=== PATIENT | female | born 1990 | race Caucasian/White ===

== ENCOUNTER 2019-05-13 20:33 | Emergency (ER) | payer MEDICAID ==
[~2019-05-13] VITALS: Ht 167.6 cm; Wt 68.2 kg
[~2019-05-13 20:33] MED LIST: AMOX-422 PO; PREN-118 PO
[2019-05-13 20:47] VITALS: BP 133/82
[2019-05-13] MEDS ORDERED: CIPR10DR LEFT EAR (22:04)
== END 2019-05-13 22:29 | disposition home or self-care (01) ==
LOC: ER 20:39
DX: H60.92 Unspecified otitis externa, left ear (principal); Z98.51 Tubal ligation status; Z79.2 Long term (current) use of antibiotics; Z79.899 Other long term (current) drug therapy
CPT/HCPCS: 99283

== ENCOUNTER → 2020-04-23 | Day surgery (SDC) | payer MEDICAID ==
[2020-04-16 11:18] LABS: CLARITY,URINE SLIGHTLY CLOUDY (Clear); COLOR,URINE YELLOW (Yellow); GLUCOSE, URINE NEGATIVE (Neg); KETONES,URINE NEGATIVE (Neg); LEUKOCYTE ESTERASE ,URINE NEGATIVE (Neg); NITRITES, URINE NEGATIVE (Neg); OCCULT BLOOD,URINE NEGATIVE (Neg); PH,URINE 6.5 (4.8-8.0); PROTEIN,URINE NEGATIVE (Neg); UROBILINOGEN,URINE 0.2 E.U/dL (0.2-1.0)
[2020-04-16 11:22] LABS: BASOPHILS % (AUTO) 0.3 % (0-1); EOSINOPHILS # (AUTO) 0.4 X10'3 (0-0.9); EOSINOPHILS % (AUTO) 5.3 % (0-6); LYMPHOCYTES # (AUTO) 1.9 X10'3 (1.1-4.8); LYMPHOCYTES % (AUTO) 23.7 % (21-51); MEAN CORPUSCULAR HEMOGLOBIN 29.2 PG (27.0-31.0); MEAN CORPUSCULAR HGB CONC 33.7 g/dL (33.0-36.5); MEAN CORPUSCULAR VOLUME 86.7 FL (78-98); MEAN PLATELET VOLUME 8.5 FL (7.4-10.4); MONOCYTES # (AUTO) 0.6 X10'3 (0-0.9); MONOCYTES % (AUTO) 7.5 % (2-12); NEUTROPHILS # (AUTO) 5.1 X10'3 (1.8-7.7); NEUTROPHILS % (AUTO) 63.2 % (42-75); PRE OP HEMATOCRIT 40.7 % (35.0-45.0); PRE OP HEMOGLOBIN 13.7 g/dL (12.0-16.0); PRE OP PLATELET COUNT 285 X10'3 (140-440); RED CELL DISTRIBUTION WIDTH 12.9 % (11.5-14.5)
[2020-04-16 11:26] LABS: MUCUS STRANDS MANY /LPF (Neg); SQUAMOUS EPITHELIAL CELL,UR MANY /LPF (FEW); UA COLLECTION TYPE CLN CATCH MIDSTREAM
[2020-04-16 11:29] LABS: PRE OP PROTIME 10.3 SECONDS (9.0-12.0)
[2020-04-16 11:30] LABS: BACTERIA,URINE 1+ /HPF (Neg); RBC,URINE 0-2 /HPF (0-2); WBC,URINE 0-4 /HPF (0-4)
[2020-04-16 11:31] LABS: ALBUMIN 3.4 G/DL (3.4-5.0); ALBUMIN/GLOBULIN RATIO 0.8 (1.1-1.5); ALKALINE PHOSPHATASE 81 IU/L (46-116); BLOOD UREA NITROGEN 15 MG/DL (7-18); BUN/CREATININE RATIO 16.3 (6.6-38.0); CALCIUM 8.7 MG/DL (8.5-10.1); CHLORIDE 103 MMOL/L (99-107); CREATININE 0.92 MG/DL (0.40-0.90); PRE OP ALT 25 U/L (30-65); PRE OP ANION GAP 9 (8-16); PRE OP AST 18 U/L (10-37); PRE OP BILIRUB, TOTAL 0.3 MG/DL (0.0-1.0); PRE OP GLUCOSE 103 MG/DL (70-104); PRE OP POTASSIUM 3.9 MMOL/L (3.4-5.1); PRE OP SODIUM 136 MMOL/L (135-145); TOTAL CARBON DIOXIDE 24.2 MMOL/L (24-32); TOTAL PROTEIN 7.7 G/DL (6.4-8.2); eGFR 71 ML/MIN
[2020-04-16 11:34] LABS: HCG SERUM QL NEGATIVE
[~2020-04-23] VITALS: Ht 167.6 cm; Wt 70.3 kg
[2020-04-23] VITALS (13 sets, daily range): BP systolic 115–133; BP diastolic 59–86
[~2020-04-23] MED LIST changes: -AMOX-422 PO; +BUPIVAcaine/PF 2.5 mg/ml (0.25%) 30ml vial ONE; +CHOL400T57 PO; +KRATOM PO; +LIDOcaine 1% (10mg/ml) 2ml vial ONE; +LIDOcaine 2% (20mg/ml) 5ml vial ONE; -PREN-118 PO; +ceFOXitin 2GM-NS 100mL ADDvant 100 ML IV ONE; +dexamethasone sod phosphate 4mg/ml inj. ONE; +famotidine 20mg tablet PO ONE; +fentaNYL /PF 50mcg/ml 5ml ampule ONE; +glycopyrrolate 0.2mg/ml inj ONE; +meperidine/PF 25mg/ml syringe IV PRN; +midazolam 2 mg/2 ml injection ONE; +morphine 2 MG/ML inj. syringe IV PRN; +neostigmine methylsulfate 1 MG/ML 10ml vial ONE; +ondansetron/PF 4mg/2ml inj IV PRN; +ondansetron/PF 4mg/2ml inj ONE; +oxyCODONE/APAP 10/325mg tablet PO ONE; +proCHLORperazine 10 MG/2 ml inj IV PRN; +propofol inj 20 ML IV ONE; +ringers solution, lacted 1,000 ML IV SCH; +rocuronium 10mg/ml inj IV ONE; +sevoflurane 250ml liquid IH ONE
--- NOTE | 2020-04-23 09:00 | NUR ---
Received from OR via BED , accompanied by Anesthesiologist DR ALMONTE and report given by Anesthesiolgist. PATIENT WAKING UP, C/O PAIN SEE EMAR, V/S WNL, NEUROVASCULAR CHECKS INTACT, 20G PIV RUE, SCD ON, BANDAIDS TO LAP SIGHTS OF ABDOMEN CDI
[2020-04-23] MEDS: meperidine/PF 25mg/ml syringe IV PRN ×2 (09:05→09:23)
[2020-04-23] MEDS: morphine 4 MG/ML inj SYRINge IV PRN ×3 (09:36→10:51)
--- NOTE | 2020-04-23 10:25 | NUR ---
PATIENT UNABLE TO PEE, BLADDER SCAN SHOWED ZERO URINE. PO FLUID AND IVF ENC
--- NOTE | 2020-04-23 11:40 | NUR ---
PATIENT A&OX4, STATES PAIN UNDER CONTROL 3-12/22, V/S WNL, NEUROVASCULAR CHECKS INTACT, 20G PIV RUE D/C, SCD OFF, BANDAIDS TO LAP SIGHTS OF ABDOMEN CDI. PATIENT BLADDER SCAN WAS ZERO AFTER VOIDING 50CC. I SPOKE WITH DR BRADLEY ABOUT HER I&O RESULTS AND SHE STATED HER PATIENT COULD BE D/C HOME AFTER HER LAST VOID OF 50CC. I HAVE REVIEWED D/C INSTRUCTIONS WITH PATIENT AND FAMILY AND THEY HAVE VERBALIZED UNDERSTANDING. PATIENT GIVEN SCRIPT FOR PAIN AND D/C HOME WITH ALL BELONGINGS AND FAMILY GAVE TRANSPORT HOME.
== END | disposition home or self-care (01) ==
LOC: PAS 05:40
PROVIDERS: ATTEND Obstetrics & Gynecology
DX: R10.2 Pelvic and perineal pain (principal); N80.9 Endometriosis, unspecified; E28.2 Polycystic ovarian syndrome; N72 Inflammatory disease of cervix uteri; K66.8 Other specified disorders of peritoneum; G89.29 Other chronic pain; F17.210 Nicotine dependence, cigarettes, uncomplicated; Z98.51 Tubal ligation status; Z98.890 Other specified postprocedural states; Z11.59 Encounter for screening for other viral diseases; Z79.899 Other long term (current) drug therapy
CPT/HCPCS: 36415; 58571; 80053; 81001; 82948; 84703; 85025; 85610; 85730; 86885; 86900; 86901; C1758; J0694; J1100; J2001; J2175; J2250; J2270; J2405; J2704; J2710; J3010; J3490; J7120; S2900; U0003; A4618

== ENCOUNTER 2023-01-17 12:29 | Emergency (ER) | payer MEDICAID ==
[~2023-01-17] VITALS: Ht 167.6 cm; Wt 72.7 kg
[~2023-01-17 12:29] MED LIST changes: -BUPIVAcaine/PF 2.5 mg/ml (0.25%) 30ml vial ONE; -LIDOcaine 1% (10mg/ml) 2ml vial ONE; -LIDOcaine 2% (20mg/ml) 5ml vial ONE; -ceFOXitin 2GM-NS 100mL ADDvant 100 ML IV ONE; -dexamethasone sod phosphate 4mg/ml inj. ONE; -famotidine 20mg tablet PO ONE; -fentaNYL /PF 50mcg/ml 5ml ampule ONE; -glycopyrrolate 0.2mg/ml inj ONE; -meperidine/PF 25mg/ml syringe IV PRN; -midazolam 2 mg/2 ml injection ONE; -morphine 2 MG/ML inj. syringe IV PRN; -neostigmine methylsulfate 1 MG/ML 10ml vial ONE; -ondansetron/PF 4mg/2ml inj IV PRN; -ondansetron/PF 4mg/2ml inj ONE; -oxyCODONE/APAP 10/325mg tablet PO ONE; -proCHLORperazine 10 MG/2 ml inj IV PRN; -propofol inj 20 ML IV ONE; -ringers solution, lacted 1,000 ML IV SCH; -rocuronium 10mg/ml inj IV ONE; -sevoflurane 250ml liquid IH ONE
[2023-01-17 12:39] VITALS: BP 127/83
[2023-01-17 13:05] LABS: EOSINOPHILS # (AUTO) 0.2 X10'3 (0-0.9); HEMOGLOBIN 14.1 g/dl (12.0-16.0)
[2023-01-17 13:07] LABS: BASOPHILS % (AUTO) 0.3 % (0-1); EOSINOPHILS % (AUTO) 2.1 % (0-6); HEMATOCRIT 40.7 % (35.0-45.0); LYMPHOCYTES # (AUTO) 1.3 X10'3 (1.1-4.8); LYMPHOCYTES % (AUTO) 13.3 % (21-51); MEAN CORPUSCULAR HEMOGLOBIN 30.5 PG (27.0-31.0); MEAN CORPUSCULAR HGB CONC 34.7 g/dL (33.0-36.5); MONOCYTES # (AUTO) 1.3 X10'3 (0-0.9); MONOCYTES % (AUTO) 13.5 % (2-12); NEUTROPHILS # (AUTO) 6.8 X10'3 (1.8-7.7); NEUTROPHILS % (AUTO) 70.8 % (42-75); PLATELET COUNT 449 X10'3 (140-440); RED BLOOD COUNT 4.63 X10'6 (4.20-5.60); RED CELL DISTRIBUTION WIDTH 12.5 % (11.5-14.5); WHITE BLOOD COUNT 9.6 X10'3 (4.5-11.0)
[2023-01-17 13:30] LABS: ALANINE AMINOTRANSFERASE 17 U/L (12-78); ALBUMIN 3.2 G/DL (3.4-5.0); ALBUMIN/GLOBULIN RATIO 0.6 (1.1-1.5); ALKALINE PHOSPHATASE 139 IU/L (46-116); ANION GAP 12 (8-16); ASPARTATE AMINO TRANSFERASE 16 U/L (10-37); BILIRUBIN,TOTAL 0.3 MG/DL (0.1-1.0); BLOOD UREA NITROGEN 6 MG/DL (7-18); BUN/CREATININE RATIO 6.2 (10.0-20.0); CALCIUM 9.6 MG/DL (8.5-10.1); CHLORIDE 101 MMOL/L (99-107); CREATININE 0.97 MG/DL (0.40-0.90); GLUCOSE 124 MG/DL (70-104); LIPASE 52 U/L (73-393); POTASSIUM 3.1 MMOL/L (3.5-5.1); SODIUM 137 MMOL/L (135-145); TOTAL CARBON DIOXIDE 24.1 MMOL/L (24-32); TOTAL PROTEIN 8.3 G/DL (6.4-8.2); eGFR 66 ML/MIN
[2023-01-17 13:41] LABS: CLARITY,URINE CLOUDY (Clear); COLOR,URINE YELLOW (Yellow); GLUCOSE, URINE NEGATIVE (Neg); KETONES,URINE TRACE mg/dl (Neg); LEUKOCYTE ESTERASE ,URINE NEGATIVE (Neg); NITRITES, URINE NEGATIVE (Neg); OCCULT BLOOD,URINE TRACE-INTACT (Neg); PROTEIN,URINE NEGATIVE (Neg); UROBILINOGEN,URINE 0.2 E.U/dL (0.2-1.0)
[2023-01-17] MEDS ORDERED: normal saline 1000ml 1,000 ML IV ONE (13:45)
[2023-01-17 13:54] LABS: UA COLLECTION TYPE CLN CATCH MIDSTREAM
[2023-01-17 13:56] LABS: MUCUS STRANDS MODERATE /LPF (Neg); SQUAMOUS EPITHELIAL CELL,UR MODERATE /LPF (FEW)
[2023-01-17 13:57] LABS: BACTERIA,URINE 1+ /HPF (Neg); RBC,URINE 0-2 /HPF (0-2); WBC,URINE 0-4 /HPF (0-4)
[2023-01-17] MEDS ORDERED: magnesium 2GM in 50ml NS 50 ML IV ONE (14:30)
[2023-01-17] MEDS ORDERED: POTASSIUM BICARB 20meq eff tab 20 MEQ TABLET.EFF PO ONE (14:30)
[2023-01-17 14:58] LABS: TOTAL CELLS COUNTED 100
[2023-01-17 14:59] LABS: PLATELET ESTIMATE INCREASED
[2023-01-17] MEDS ORDERED: ondansetron/PF 4mg/2ml inj IV ONE (15:50)
[2023-01-17] MEDS ORDERED: CefTRIAXone 2gm/D5W 50ml BAG 50 ML IV ONE (15:50)
[2023-01-17] MEDS ORDERED: ketorolac trometh. 30mg/ml inj. IV ONE (16:10)
[2023-01-17] MEDS ORDERED: glycopyrrolate 0.2mg/ml inj IV ONE (16:10)
[2023-01-17] MEDS ORDERED: azithromycin 250mg tablet PO ONE (17:00)
[2023-01-17] MEDS ORDERED: DICY10CA88 PO (17:01)
[2023-01-17] MEDS ORDERED: ONDA4TAB12 PO (17:01)
== END 2023-01-17 17:23 | disposition home or self-care (01) ==
LOC: ER 12:30
DX: R11.2 Nausea with vomiting, unspecified (principal); R19.7 Diarrhea, unspecified; Z98.51 Tubal ligation status
CPT/HCPCS: 36415; 80053; 81001; 83690; 85007; 85025; 96361; 96365; 96366; 96368; 96375; 99284; J0696; J1885; J2405; J3475; J3490; J7030

== ENCOUNTER 2023-01-20 11:31 | Emergency (ER) | payer MEDICAID ==
[~2023-01-20] VITALS: Ht 167.6 cm; Wt 72.7 kg
[~2023-01-20 11:31] MED LIST changes: +DICY10CA88 PO; +ONDA4TAB12 PO
[2023-01-20 12:12] LABS: BASOPHILS % (AUTO) 0.2 % (0-1); EOSINOPHILS # (AUTO) 0.3 X10'3 (0-0.9); EOSINOPHILS % (AUTO) 2.3 % (0-6); HEMATOCRIT 40.8 % (35.0-45.0); HEMOGLOBIN 13.8 g/dl (12.0-16.0); LYMPHOCYTES # (AUTO) 0.9 X10'3 (1.1-4.8); LYMPHOCYTES % (AUTO) 6.6 % (21-51); MEAN CORPUSCULAR HEMOGLOBIN 29.7 PG (27.0-31.0); MEAN CORPUSCULAR HGB CONC 33.9 g/dL (33.0-36.5); MEAN CORPUSCULAR VOLUME 87.7 FL (78-98); MEAN PLATELET VOLUME 7.5 FL (7.4-10.4); MONOCYTES % (AUTO) 7.2 % (2-12); NEUTROPHILS % (AUTO) 83.7 % (42-75); PLATELET COUNT 488 X10'3 (140-440); RED BLOOD COUNT 4.65 X10'6 (4.20-5.60); RED CELL DISTRIBUTION WIDTH 12.4 % (11.5-14.5); WHITE BLOOD COUNT 14.3 X10'3 (4.5-11.0)
[2023-01-20 12:25] LABS: ALANINE AMINOTRANSFERASE 15 U/L (12-78); ALBUMIN 2.6 G/DL (3.4-5.0); ALBUMIN/GLOBULIN RATIO 0.5 (1.1-1.5); ALKALINE PHOSPHATASE 128 IU/L (46-116); ANION GAP 12 (8-16); ASPARTATE AMINO TRANSFERASE 11 U/L (10-37); BILIRUBIN,TOTAL 0.4 MG/DL (0.1-1.0); BLOOD UREA NITROGEN 11 MG/DL (7-18); CALCIUM 8.6 MG/DL (8.5-10.1); CHLORIDE 97 MMOL/L (99-107); CREATININE 0.92 MG/DL (0.40-0.90); GLUCOSE 139 MG/DL (70-104); LIPASE < 50 U/L (73-393); POTASSIUM 3.3 MMOL/L (3.5-5.1); SODIUM 136 MMOL/L (135-145); TOTAL CARBON DIOXIDE 27.2 MMOL/L (24-32); TOTAL PROTEIN 7.5 G/DL (6.4-8.2); eGFR 70 ML/MIN
[2023-01-20 13:08] LABS: LARGE PLATELETS FEW; PLATELET ESTIMATE INCREASED
--- NOTE | 2023-01-20 13:13 | NUR ---
UA SENT TO LAB - FATHER AT BEDSIDE - PT UPDATED ON PLAN OF CARE
[2023-01-20] MEDS ORDERED: normal saline 1000ML IV soln IV ONE (13:30)
[2023-01-20 13:34] LABS: CLARITY,URINE CLEAR (Clear); COLOR,URINE DARK YELLOW (Yellow); GLUCOSE, URINE NEGATIVE (Neg); KETONES,URINE 15 mg/dl (Neg); LEUKOCYTE ESTERASE ,URINE NEGATIVE (Neg); NITRITES, URINE NEGATIVE (Neg); OCCULT BLOOD,URINE SMALL (Neg); PROTEIN,URINE 30 mg/dl (Neg); UA COLLECTION TYPE CLN CATCH MIDSTREAM; UROBILINOGEN,URINE 0.2 E.U/dL (0.2-1.0)
[2023-01-20 13:47] LABS: BACTERIA,URINE 2+ /HPF (Neg); MUCUS STRANDS MANY /LPF (Neg); SQUAMOUS EPITHELIAL CELL,UR MANY /LPF (FEW); WBC,URINE 0-4 /HPF (0-4)
[2023-01-20 13:50] LABS: URINE HCG POSITIVE (NEG)
[2023-01-20] MEDS ORDERED: ringers solution, lacted 1,000 ML IV ONE (14:40)
[2023-01-20] MEDS ORDERED: ondansetron/PF 4mg/2ml inj IV ONE (14:40)
[2023-01-20] MEDS ORDERED: potassium Cl 20 mEq SR tablet PO ONE (15:45)
[2023-01-20 15:54] LABS: C DIFF SPECIMEN=DIARRHEA? ACCEPTABLE; C DIFFICILE TOXINS A&B POSITIVE (Neg)
[2023-01-20] MEDS ORDERED: vancomycin 125mg/5ml ORAL solution 5ml UD oral syringe PO ONE (16:35)
[2023-01-20] MEDS ORDERED: VANC125C5 PO (16:52)
[2023-01-20 17:13] VITALS: BP 139/83
== END 2023-01-20 18:01 | disposition home or self-care (01) ==
LOC: ER 11:32
DX: A04.72 Enterocolitis due to Clostridium difficile, not specified as recurrent (principal); R91.8 Other nonspecific abnormal finding of lung field; F17.200 Nicotine dependence, unspecified, uncomplicated; Z98.51 Tubal ligation status
CPT/HCPCS: 36415; 70450; 71250; 74176; 80053; 81001; 81025; 83605; 83690; 84145; 84702; 85008; 85025; 87040; 87045; 87046; 87324; 87449; 96361; 96374; 99285; J2405; J7030; J7120

== ENCOUNTER 2023-02-02 11:26 | Inpatient (IN) | payer MEDICAID ==
[~2023-02-02] VITALS: Ht 167.6 cm; Wt 67.7 kg
[2023-02-02 12:05] LABS: BASOPHILS % (AUTO) 0.2 % (0-1); EOSINOPHILS # (AUTO) 0.3 X10'3 (0-0.9); EOSINOPHILS % (AUTO) 2.1 % (0-6); HEMATOCRIT 38.7 % (35.0-45.0); HEMOGLOBIN 12.6 g/dl (12.0-16.0); LYMPHOCYTES # (AUTO) 1.2 X10'3 (1.1-4.8); MEAN CORPUSCULAR HEMOGLOBIN 28.2 PG (27.0-31.0); MEAN CORPUSCULAR HGB CONC 32.5 g/dL (33.0-36.5); MEAN CORPUSCULAR VOLUME 86.7 FL (78-98); MEAN PLATELET VOLUME 7.1 FL (7.4-10.4); MONOCYTES # (AUTO) 0.1 X10'3 (0-0.9); MONOCYTES % (AUTO) 0.4 % (2-12); NEUTROPHILS # (AUTO) 11.8 X10'3 (1.8-7.7); NEUTROPHILS % (AUTO) 88.3 % (42-75); PLATELET COUNT 719 X10'3 (140-440); RED BLOOD COUNT 4.46 X10'6 (4.20-5.60); WHITE BLOOD COUNT 13.4 X10'3 (4.5-11.0)
[2023-02-02 12:16] LABS: ALANINE AMINOTRANSFERASE 38 U/L (12-78); ALBUMIN 1.4 G/DL (3.4-5.0); ALBUMIN/GLOBULIN RATIO 0.3 (1.1-1.5); ALKALINE PHOSPHATASE 119 IU/L (46-116); ANION GAP 4 (8-16); ASPARTATE AMINO TRANSFERASE 34 U/L (10-37); BILIRUBIN,TOTAL 0.2 MG/DL (0.1-1.0); BLOOD UREA NITROGEN 7 MG/DL (7-18); BUN/CREATININE RATIO 9.7 (10.0-20.0); CALCIUM 8.2 MG/DL (8.5-10.1); CHLORIDE 90 MMOL/L (99-107); CREATININE 0.72 MG/DL (0.40-0.90); GLUCOSE 135 MG/DL (70-104); LIPASE < 50 U/L (73-393); POTASSIUM 3.1 MMOL/L (3.5-5.1); SODIUM 129 MMOL/L (135-145); TOTAL CARBON DIOXIDE 34.8 MMOL/L (24-32); TOTAL PROTEIN 6.1 G/DL (6.4-8.2); eGFR > 90 ML/MIN
[2023-02-02 13:07] LABS: LARGE PLATELETS FEW; PLATELET ESTIMATE INCREASED; TOTAL CELLS COUNTED 100
[2023-02-02] MEDS ORDERED: ondansetron/PF 4mg/2ml inj IV ONE (13:40)
[2023-02-02] MEDS ORDERED: normal saline 1000ml 1,000 ML IV ONE ×2 (13:40→14:20)
[2023-02-02] MEDS ORDERED: metroNIDAZOLE-Flagyl 500mg/NS 100 ML IV STA (14:22)
[2023-02-02] MEDS ORDERED: POTASSIUM BICARB 20meq eff tab 20 MEQ TABLET.EFF PO STA (14:22)
[2023-02-02 14:31] LABS: MAGNESIUM 2.2 MG/DL (1.5-2.4)
[2023-02-02] MEDS ORDERED: vancomycin 125mg/5ml ORAL solution 5ml UD oral syringe PO STA (14:41)
[2023-02-02] MEDS ORDERED: ondansetron/PF 4mg/2ml inj IV PRN (14:45)
[2023-02-02] MEDS ORDERED: magnesium 4gm in 100ml NS 100 ML IV PRN (14:45)
[2023-02-02] MEDS ORDERED: potassium Cl 40MEQ/1/2NS 520ml 520 ML IV PRN (14:45)
[2023-02-02] MEDS ORDERED: mag hydrox/Alum hydrox/simeth 30ml oral suspension PO PRN (14:45)
[2023-02-02] MEDS ORDERED: acetaminophen 325mg tablet PO PRN (14:45)
[2023-02-02] MEDS ORDERED: morphine 2 MG/ML inj. syringe IV PRN ×2 (14:45)
[2023-02-02] MEDS ORDERED: potassium Cl 20 mEq SR tablet PO PRN (14:45)
[2023-02-02] MEDS ORDERED: ONDA4TAB12 PO (15:17)
[2023-02-02] MEDS ORDERED: DICY10CA14 PO (15:17)
[2023-02-02] MEDS ORDERED: CHOL20004 PO (15:17)
[2023-02-02] MEDS ORDERED: LACT1CAP65 PO (15:19)
[2023-02-02] MEDS ORDERED: ASCO-134 PO (15:20)
[2023-02-02] MEDS: normal saline 1000ml 1,000 ML IV SCH (17:03)
[2023-02-02 17:33] LABS: C DIFF SPECIMEN=DIARRHEA? ACCEPTABLE; C DIFFICILE TOXINS A&B NEGATIVE (Neg)
--- NOTE | 2023-02-02 18:43 | NUR ---
Received report from automatic blockerTERA Francis. Patient to follow shortly.
--- NOTE | 2023-02-02 19:00 | NUR ---
Patient arrived to floor via gurney. Patient A&O in no apparent distress at this time. Family are at bedside.
[2023-02-02 19:15] VITALS: BP 116/65
[2023-02-02] MEDS: potassium Cl 20 mEq SR tablet PO PRN (20:01)
[2023-02-02] MEDS: K and/or MAG REPLACEMENT MC SCH (20:14)
[2023-02-02] MEDS: vancomycin 125mg/5ml ORAL solution 5ml UD oral syringe PO SCH (20:14)
[2023-02-02 22:00] VITALS: BP 138/68
--- NOTE | 2023-02-02 23:20 | NUR ---
Dr Hogue called back in response to voicemail left earlier, and for now patient is to remain on contact/enteric isolation.
[2023-02-03] VITALS (9 sets, daily range): BP systolic 99–128; BP diastolic 46–70
[2023-02-03] MEDS: normal saline 1000ml 1,000 ML IV SCH ×3 (00:45→20:34)
[2023-02-03] MEDS: vancomycin 125mg/5ml ORAL solution 5ml UD oral syringe PO SCH ×4 (01:43→20:00)
[2023-02-03 06:10] LABS: BASOPHILS % (AUTO) 0.3 % (0-1); EOSINOPHILS # (AUTO) 0.4 X10'3 (0-0.9); EOSINOPHILS % (AUTO) 4.2 % (0-6); HEMATOCRIT 27.4 % (35.0-45.0); HEMOGLOBIN 9.6 g/dl (12.0-16.0); LYMPHOCYTES # (AUTO) 1.2 X10'3 (1.1-4.8); LYMPHOCYTES % (AUTO) 11.3 % (21-51); MEAN CORPUSCULAR HEMOGLOBIN 30.4 PG (27.0-31.0); MEAN CORPUSCULAR VOLUME 86.9 FL (78-98); MEAN PLATELET VOLUME 7.1 FL (7.4-10.4); MONOCYTES # (AUTO) 0.7 X10'3 (0-0.9); MONOCYTES % (AUTO) 7.1 % (2-12); NEUTROPHILS # (AUTO) 8.1 X10'3 (1.8-7.7); NEUTROPHILS % (AUTO) 77.1 % (42-75); PLATELET COUNT 470 X10'3 (140-440); RED BLOOD COUNT 3.16 X10'6 (4.20-5.60); RED CELL DISTRIBUTION WIDTH 12.9 % (11.5-14.5); WHITE BLOOD COUNT 10.5 X10'3 (4.5-11.0)
[2023-02-03 06:16] LABS: ALANINE AMINOTRANSFERASE 25 U/L (12-78); ALBUMIN/GLOBULIN RATIO 0.3 (1.1-1.5); ALKALINE PHOSPHATASE 85 IU/L (46-116); ANION GAP 1 (8-16); ASPARTATE AMINO TRANSFERASE 20 U/L (10-37); BILIRUBIN,TOTAL 0.2 MG/DL (0.1-1.0); BLOOD UREA NITROGEN 5 MG/DL (7-18); BUN/CREATININE RATIO 8.9 (10.0-20.0); CALCIUM 7.2 MG/DL (8.5-10.1); CHLORIDE 100 MMOL/L (99-107); CREATININE 0.56 MG/DL (0.40-0.90); GLUCOSE 102 MG/DL (70-104); MAGNESIUM 1.8 MG/DL (1.5-2.4); POTASSIUM 3.1 MMOL/L (3.5-5.1); SODIUM 131 MMOL/L (135-145); TOTAL CARBON DIOXIDE 29.9 MMOL/L (24-32); TOTAL PROTEIN 4.3 G/DL (6.4-8.2); eGFR > 90 ML/MIN
--- NOTE | 2023-02-03 06:50 | NUR ---
Problems reprioritized. Patient report given, questions answered & plan of care reviewed with Yin HALEY.
--- NOTE | 2023-02-03 06:55 | NUR ---
Patient in room ORTHO 4007. I have received report from RAYMOND HALEY and had the opportunity to ask questions and assume patient care.
[2023-02-03] MEDS: K and/or MAG REPLACEMENT MC SCH ×2 (08:00→20:34)
[2023-02-03] MEDS: potassium Cl 20 mEq SR tablet PO PRN ×2 (09:47→20:10)
--- NOTE | 2023-02-03 09:48 | NUR ---
PT REFUSED THE ORAL VANCO, STATED SHE WAS TAKING THIS A FEW WEEKS BACK DOESN'T USUALLY TAKE ABX, I EDUCATED HER ON WHY AND WHAT ITS FOR. STATED THAT IF SHE DOESN'T WANT TO TAKE IT SHE NEEDS TO TALK TO THE INFECTION CONTROL DR. CHARGE NURSE WAS NOTIFIED.
--- NOTE | 2023-02-03 11:04 | NUR ---
dr murrieta notified of pt refusal of oral vanco.
--- NOTE | 2023-02-03 14:41 | NUR ---
Malnutrition Consult: Pt admit DX pancolitis w/ hx recent c.diff DX 01/20 visit and continued diarrhea now bloody per DO note. Pt reports wt loss and decreased intake CAREER DEVELOPMENT CONSULTANT though no wt loss amount per RN Malnutrition Screen. Per DO notes, abdominal pain now nearly resolved and pt hx able to keep some food down CAREER DEVELOPMENT CONSULTANT. PO 50% first clear liquids meal this admit. Pt w/ normal strength, no edema/wounds, and no scaled wt this admit or scaled wt hx in EMR; given this pt lacks minimum malnutrition criteria though is at risk if restrictive diet order/decreased intake persists. Will monitor for further malnutrition criteria this admit. Addendum: 02/03/23 at [address] Amended: Links added.
[2023-02-03 14:51] LABS: HEMATOCRIT 28.3 % (35.0-45.0); HEMOGLOBIN 9.7 g/dl (12.0-16.0); MEAN CORPUSCULAR HEMOGLOBIN 29.8 PG (27.0-31.0); MEAN CORPUSCULAR HGB CONC 34.3 g/dL (33.0-36.5); MEAN CORPUSCULAR VOLUME 86.9 FL (78-98); MEAN PLATELET VOLUME 6.9 FL (7.4-10.4); PLATELET COUNT 468 X10'3 (140-440); RED BLOOD COUNT 3.26 X10'6 (4.20-5.60); RED CELL DISTRIBUTION WIDTH 13.2 % (11.5-14.5)
[2023-02-03] MEDS ORDERED: fentaNYL/PF 50MCG/1 ML 2ML syringe ONE (15:21)
[2023-02-03] MEDS ORDERED: MIDAZolam 1 MG/ML 5ML VIAL ONE (15:21)
[2023-02-03] MEDS ORDERED: mesalamine 1.2gm ER tablet PO SCH ×2 (18:25→18:35)
--- NOTE | 2023-02-03 18:51 | NUR ---
faxed gi order to pharmacy and put in orders per gi dr
--- NOTE | 2023-02-03 19:00 | NUR ---
Patient stated that the GI Dr had said that it was OK for he to eat regular food. Her family had brought in food for her to eat. Denies having any nausea or pain at this time. Addendum: 02/04/23 at 0105 by Therese Portillo RN Amended: Links added. Addendum: 02/04/23 at 0148 by Therese Portillo RN It was a sour dough horacio from [employer] in the box
--- NOTE | 2023-02-03 19:00 | NUR ---
Patient in room ORTHO 4007. I have received report from Yin and had the opportunity to ask questions and assume patient care.
--- NOTE | 2023-02-03 19:02 | NUR ---
Problems reprioritized. Patient report given, questions answered & plan of care reviewed with sylwia hoff.
--- NOTE | 2023-02-03 19:04 | NUR ---
night nurse will continue to replace k for pt.
--- NOTE | 2023-02-03 20:10 | NUR ---
Patient refusing to take vanco.
[2023-02-04] MEDS: potassium Cl 20 mEq SR tablet PO PRN ×2 (01:16→10:42)
[2023-02-04] MEDS ORDERED: HYDROcodone/acetaminophen 5mg/325mg tablet PO PRN (01:20)
[2023-02-04] MEDS: vancomycin 125mg/5ml ORAL solution 5ml UD oral syringe PO SCH ×2 (01:36→08:00)
[2023-02-04 06:00] VITALS: BP 113/57
--- NOTE | 2023-02-04 06:30 | NUR ---
Problems reprioritized. Patient report given, questions answered & plan of care reviewed with Kendy HALEY.
--- NOTE | 2023-02-04 06:31 | NUR ---
Patient in room ORTHO 4007. I have received report from TERA Saleh and had the opportunity to ask questions and assume patient care.
[2023-02-04] MEDS: normal saline 1000ml 1,000 ML IV SCH (06:45)
[2023-02-04] MEDS ORDERED: mesalamine 1.2gm ER tablet PO SCH (07:46)
[2023-02-04 07:58] LABS: BASOPHILS % (AUTO) 0.3 % (0-1); EOSINOPHILS # (AUTO) 0.4 X10'3 (0-0.9); EOSINOPHILS % (AUTO) 4.4 % (0-6); HEMATOCRIT 26.6 % (35.0-45.0); LYMPHOCYTES # (AUTO) 1.5 X10'3 (1.1-4.8); LYMPHOCYTES % (AUTO) 17.4 % (21-51); MEAN CORPUSCULAR HEMOGLOBIN 29.8 PG (27.0-31.0); MEAN CORPUSCULAR VOLUME 87.7 FL (78-98); MEAN PLATELET VOLUME 6.9 FL (7.4-10.4); MONOCYTES # (AUTO) 0.5 X10'3 (0-0.9); MONOCYTES % (AUTO) 6.2 % (2-12); NEUTROPHILS # (AUTO) 6.2 X10'3 (1.8-7.7); NEUTROPHILS % (AUTO) 71.7 % (42-75); PLATELET COUNT 470 X10'3 (140-440); RED BLOOD COUNT 3.04 X10'6 (4.20-5.60); RED CELL DISTRIBUTION WIDTH 13.3 % (11.5-14.5); WHITE BLOOD COUNT 8.7 X10'3 (4.5-11.0)
[2023-02-04] MEDS: K and/or MAG REPLACEMENT MC SCH (08:00)
[2023-02-04 08:10] LABS: ALANINE AMINOTRANSFERASE 25 U/L (12-78); ALBUMIN 0.9 G/DL (3.4-5.0); ALBUMIN/GLOBULIN RATIO 0.3 (1.1-1.5); ALKALINE PHOSPHATASE 90 IU/L (46-116); ANION GAP 2 (8-16); ASPARTATE AMINO TRANSFERASE 17 U/L (10-37); BILIRUBIN,TOTAL 0.1 MG/DL (0.1-1.0); BLOOD UREA NITROGEN 5 MG/DL (7-18); BUN/CREATININE RATIO 8.8 (10.0-20.0); CALCIUM 7.4 MG/DL (8.5-10.1); CHLORIDE 107 MMOL/L (99-107); CREATININE 0.57 MG/DL (0.40-0.90); GLUCOSE 93 MG/DL (70-104); MAGNESIUM 1.7 MG/DL (1.5-2.4); POTASSIUM 3.3 MMOL/L (3.5-5.1); SODIUM 138 MMOL/L (135-145); eGFR > 90 ML/MIN
[2023-02-04] MEDS ORDERED: POTA-207 PO (11:41)
--- NOTE | 2023-02-04 16:24 | NUR ---
Patient was discharged with instructions, verbalizing understanding of instructions in wheelchair accompanied by nursing staff and family going home via private vehicle. All lines and tubes including PIV with cannula intact have been removed. Education has been provided at bedside and all questions have been answered. Patient is stable and appropriate for discharge.
== END 2023-02-04 14:05 | disposition home or self-care (01) | DRG 245 ==
LOC: ER 11:27 → ED HOLD 14:49 → ORTHO 4S 19:00
PROVIDERS: ADMIT Family Medicine; ATTEND Family Medicine
PROC: 0DBN8ZX Excision of Sigmoid Colon, Via Natural or Artificial Opening Endoscopic, Diagnostic (ICD-10-PCS; principal; 2023-02-03)
DX: K50.90 Crohn's disease, unspecified, without complications (principal); E87.1 Hypo-osmolality and hyponatremia; D64.9 Anemia, unspecified; Z20.822 Contact with and (suspected) exposure to COVID-19; E86.0 Dehydration; R00.0 Tachycardia, unspecified; E87.6 Hypokalemia; Z83.3 Family history of diabetes mellitus; Z90.710 Acquired absence of both cervix and uterus; Z98.51 Tubal ligation status; Z79.899 Other long term (current) drug therapy
CPT/HCPCS: 36415; 45331; 80053; 83605; 83690; 83735; 85007; 85025; 85027; 87040; 87081; 87324; 87449; 87811; 99152; 99153; 99285; A4620; A6222; A6258; G0378; J2250; J3010; J3490; J7030